=== PATIENT | female | born 1980 | race African-American/Black ===

== ENCOUNTER 2021-12-15 21:54 | Emergency (ER) | payer MEDICAID ==
[~2021-12-15] VITALS: Ht 170.2 cm; Wt 80.0 kg
[2021-12-15 23:46] LABS: BASOPHILS % 0.3 % (0.0-2.0); EOSINOPHILS % 0.5 % (0.0-5.0); HEMATOCRIT. 39.4 % (36.0-48.0); HEMOGLOBIN. 13.6 g/dL (12.0-16.0); LYMPHOCYTES % 11.5 % (20.0-50.0); MEAN CORPUSCULAR HEMOGLOBIN 30.6 pg (28.0-32.0); MEAN CORPUSCULAR VOLUME 88.4 fL (81.0-99.0); MEAN PLATELET VOLUME 6.8 fl (7.4-10.4); MONOCYTES % 5.3 % (2.0-8.0); NEUTROPHILS % 82.4 % (40.0-76.0); PLATELET 338 x1000/uL (130-400); RED BLOOD CELL COUNT 4.45 mill/uL (4.2-5.4); RED CELL DISTRIBUTION WIDTH 12.5 % (11.6-14.6)
[2021-12-15 23:56] LABS: CHLORIDE 111 mEq/L (98-107)
[2021-12-16 00:05] LABS: ETHANOL BLOOD < 10 mg/dL
[2021-12-16 00:22] LABS: CLARITY URINE CLEAR (CLEAR); COLOR URINE YELLOW (YELLOW); KETONES URINE TRACE (NEGATIVE); LEUKOCYTE ESTERASE URINE 2+ (NEGATIVE); NITRITE URINE NEGATIVE (NEGATIVE); OCCULT BLOOD URINE NEGATIVE (NEGATIVE); PROTEIN URINE NEGATIVE (NEGATIVE)
[2021-12-16] MEDS ORDERED: HALOPERIDOL LACTATE 5MG/ML VIAL IM ONE (00:30)
[2021-12-16] MEDS ORDERED: LORAZEPAM 2MG/ML CPJ IM ONE (00:30)
[2021-12-16 01:20] LABS: HCG SCREEN NEGATIVE
[2021-12-16 01:30] LABS: *AMPHETAMINES SCREEN URINE NEGATIVE (NEGATIVE); *BARBITURATES SCREEN URINE NEGATIVE (NEGATIVE); *BENZODIAZEPINES SCREEN URINE NEGATIVE (NEGATIVE); CANNABINOID URINE SCREEN NEGATIVE (NEGATIVE); METHADONE URINE SCREEN NEGATIVE (NEGATIVE); OPIATES URINE SCREEN NEGATIVE (NEGATIVE); PHENCYCLIDINE URINE SCREEN NEGATIVE (NEGATIVE)
[2021-12-16] MEDS: OLANZAPINE 5MG TABLET PO SCH ×2 (11:54→21:40)
[2021-12-16 12:48] LABS: *COCAINE SCREEN URINE NEGATIVE (NEGATIVE)
[2021-12-17] MEDS: OLANZAPINE 5MG TABLET PO SCH ×2 (09:00→20:30)
[2021-12-18] MEDS: OLANZAPINE 5MG TABLET PO SCH ×2 (07:49→20:29)
[2021-12-19 08:30] VITALS: BP 118/56
[2021-12-19] MEDS: OLANZAPINE 5MG TABLET PO SCH (09:14)
== END 2021-12-19 11:23 | disposition home or self-care (01) ==
LOC: ER 21:54
DX: R44.0 Auditory hallucinations (principal); Z86.59 Personal history of other mental and behavioral disorders; Z20.822 Contact with and (suspected) exposure to COVID-19
CPT/HCPCS: 36415; 80053; 80305; 80307; 80320; 80329; 81003; 84703; 85025; 96372; 99285; C9803; J1630; J2060; U0003; U0005; G0480

== ENCOUNTER 2024-10-09 12:13 | Inpatient (IN) | payer MEDICAID ==
[~2024-10-09] VITALS: Ht 165.1 cm; Wt 116.6 kg
[2024-10-09 13:09] LABS: HEMATOCRIT. 42.2 % (36.0-48.0); HEMOGLOBIN. 13.9 g/dL (12.0-16.0); MEAN CORPUSCULAR VOLUME 93.7 fL (81.0-99.0); PLATELET 236 x1000/uL (130-400); RED CELL DISTRIBUTION WIDTH 13.4 % (11.6-14.6); WHITE BLOOD COUNT 6.8 x1000/uL (4.5-11.0)
[2024-10-09 13:11] LABS: CHLORIDE 104 mEq/L (98-107); POTASSIUM 3.9 mEq/L (3.5-5.1); SODIUM 140 mEq/L (136-145)
[2024-10-09 13:12] LABS: CALCIUM 9.4 mg/dL (8.7-10.4); CARBON DIOXIDE 29 mEq/L (21-32)
[2024-10-09 13:17] LABS: CREATININE 1.2 mg/dL (0.6-1.0); GLUCOSE 83 mg/dL (70-105); PROTHROMBIN TIME 10.5 sec (9.6-11.0); UREA NITROGEN BLOOD 10 mg/dL (9-23)
[2024-10-09 13:19] LABS: ACETAMINOPHEN < 2 ug/mL (10-30)
[2024-10-09 13:22] LABS: THYROID STIMULATING HORMONE 6.07 uIU/mL (0.55-4.78)
[2024-10-09 13:26] LABS: ETHANOL BLOOD < 10 mg/dL (<10)
[2024-10-09 13:48] LABS: DIFFERENTIAL COMMENT 1
[2024-10-09 19:40] VITALS: BP 170/69; PULSE 61; RESP 18; TEMP 36.7
[2024-10-09 20:00] VITALS: BP 170/69; PULSE 61; RESP 18; TEMP 36.7; O2SAT 95
[2024-10-09] MEDS ORDERED: DOCUSATE SODIUM 100MG CAPSULE PO PRN (23:45)
[2024-10-09] MEDS ORDERED: ACETAMINOPHEN 325MG TABLET PO PRN (23:45)
[2024-10-09] MEDS ORDERED: NALOXONE HCL 0.4MG/ML VIAL IV PRN (23:45)
[2024-10-09] MEDS ORDERED: HYDROCODONE/ACETAMINOPHEN 5/325MG TABLET PO PRN (23:45)
[2024-10-09] MEDS ORDERED: IPRATROPIUM/ALBUTEROL 0.5-3(2.5)MG/3ML NEB HHN PRN (23:45)
[2024-10-09] MEDS ORDERED: ONDANSETRON HCL 4MG/2ML INJ IV PRN (23:45)
[2024-10-09] MEDS ORDERED: GUAIFENESIN 200MG/10ML SUGAR FREE UDC PO PRN (23:45)
[2024-10-09] MEDS ORDERED: MAGNESIUM/ALUMINUM HYDROXIDE/SIMETHICONE 30ML UDC PO PRN (23:45)
[2024-10-10] VITALS: BP 146/89; PULSE 63; RESP 18; TEMP 36.3; O2SAT 100
[2024-10-10] MEDS: ENOXAPARIN 40MG/0.4ML SYR SUBCUT SCH (00:14)
[2024-10-10 07:55] VITALS: BP 156/85; PULSE 57; RESP 16; TEMP 37.1; O2SAT 97
[2024-10-10 07:57] VITALS: PULSE 61; PULSE 69; RESP 22; RESP 26; TEMP 97.9
[2024-10-10 08:10] LABS: HEMATOCRIT. 35.8 % (36.0-48.0); HEMOGLOBIN. 12.1 g/dL (12.0-16.0); MEAN CORPUSCULAR HEMOGLOBIN 31.7 pg (28.0-32.0); MEAN CORPUSCULAR HGB CONC 33.9 g/dL (31.0-37.0); MEAN CORPUSCULAR VOLUME 93.3 fL (81.0-99.0); MEAN PLATELET VOLUME 6.8 fl (7.4-10.4); PLATELET 211 x1000/uL (130-400); RED BLOOD CELL COUNT 3.83 mill/uL (4.2-5.4); WHITE BLOOD COUNT 5.1 x1000/uL (4.5-11.0)
[2024-10-10 08:24] LABS: CALCIUM 8.9 mg/dL (8.7-10.4); POTASSIUM 3.6 mEq/L (3.5-5.1)
[2024-10-10 08:29] LABS: CREATINE KINASE MB FRACTION < 0.5 ng/mL (0.5-3.6)
[2024-10-10 08:30] LABS: CREATININE 1.2 mg/dL (0.6-1.0)
[2024-10-10 08:31] LABS: CREATINE KINASE 60 IU/L (34-145)
[2024-10-10 08:35] LABS: TROPONIN I HIGH SENSITIVITY < 4 ng/L (3.0-34)
[2024-10-10 08:41] LABS: DIFFERENTIAL COMMENT 1
[2024-10-10 11:54] VITALS: BP 129/88; PULSE 68; RESP 16; TEMP 36.7; O2SAT 99
[2024-10-10 14:29] LABS: T4 FREE 1.64 ng/dL (0.89-1.76)
[2024-10-10 15:39] LABS: CREATINE KINASE MB FRACTION < 0.5 ng/mL (0.5-3.6)
[2024-10-10 15:41] LABS: AMMONIA < 17 uMol/L (<32)
[2024-10-10 15:43] LABS: CREATINE KINASE 75 IU/L (34-145)
[2024-10-10 15:56] LABS: TROPONIN I HIGH SENSITIVITY < 4 ng/L (3.0-34)
[2024-10-10 16:00] VITALS: BP 143/89; PULSE 78; RESP 18; TEMP 36.7; O2SAT 99
[2024-10-10 16:32] LABS: PLATELET ESTIMATE NORMAL
[2024-10-10 17:47] LABS: PLATELET ESTIMATE NORMAL
[2024-10-10 20:00] VITALS: BP 150/90; PULSE 65; RESP 16; TEMP 37.8; O2SAT 96
[2024-10-10 20:10] LABS: FOLIC ACID (FOLATE) SERUM 9.08 ng/mL (>5.38)
[2024-10-10 20:11] LABS: VITAMIN B12 SERUM 369 pg/mL (211-911)
[2024-10-11] VITALS: BP 160/86; PULSE 60; RESP 16; TEMP 37.9; O2SAT 96
[2024-10-11 04:00] VITALS: BP 157/77; PULSE 56; RESP 17; TEMP 37.7; O2SAT 95
[2024-10-11 08:00] VITALS: BP_SYST 127; BP_SYST 160; BP_DIAS 64; BP_DIAS 86; PULSE 60; PULSE 76; RESP 16; RESP 18; TEMP 36.5; TEMP 38.2; O2SAT 95; O2SAT 99
[2024-10-11 12:00] VITALS: BP 142/69; PULSE 90; RESP 18; TEMP 36.4; O2SAT 99
[2024-10-11] MEDS: ACETAMINOPHEN 325MG TABLET PO PRN (12:08)
[2024-10-11] MEDS: CLONIDINE 0.1MG TABLET PO PRN (12:09)
[2024-10-11 16:00] VITALS: BP 114/82; PULSE 86; RESP 18; TEMP 36.4; O2SAT 97
[2024-10-11] MEDS: ENOXAPARIN 30MG/0.3ML SYR SUBCUT SCH (17:13)
[2024-10-11 20:00] VITALS: BP 158/77; PULSE 53; RESP 18; TEMP 36.9; O2SAT 96
[2024-10-11] MEDS ORDERED: LEVETIRACETAM 1,000MG in NACL 100ML PREMIX IV SCH (21:00)
[2024-10-11] MEDS: LEVETIRACETAM 1000MG PREMIX 100 ML IV SCH (21:24)
[2024-10-12] VITALS (7 sets, daily range): BP systolic 113–185; BP diastolic 63–88; PULSE 57–76; RESP 16–19; TEMP 36.3–36.8; O2SAT 95–99
[2024-10-12] MEDS: LEVETIRACETAM 500MG TABLET PO SCH (09:00)
[2024-10-13] VITALS: BP 126/67; PULSE 119; RESP 18; TEMP 36.8; O2SAT 97
[2024-10-13 04:00] VITALS: BP 138/64; PULSE 60; RESP 16; TEMP 36.8; O2SAT 96
[2024-10-13 06:51] LABS: POTASSIUM 3.6 mEq/L (3.5-5.1)
[2024-10-13 06:53] LABS: CALCIUM 8.9 mg/dL (8.7-10.4)
[2024-10-13 06:56] LABS: CREATININE 1.3 mg/dL (0.6-1.0)
[2024-10-13 07:20] LABS: HEMATOCRIT. 33.4 % (36.0-48.0); HEMOGLOBIN. 11.3 g/dL (12.0-16.0); MEAN CORPUSCULAR HEMOGLOBIN 31.5 pg (28.0-32.0); MEAN CORPUSCULAR HGB CONC 33.9 g/dL (31.0-37.0); MEAN PLATELET VOLUME 7.2 fl (7.4-10.4); PLATELET 195 x1000/uL (130-400); RED BLOOD CELL COUNT 3.59 mill/uL (4.2-5.4); RED CELL DISTRIBUTION WIDTH 13.3 % (11.6-14.6); WHITE BLOOD COUNT 5.3 x1000/uL (4.5-11.0)
[2024-10-13 07:48] VITALS: BP 149/78; PULSE 55; RESP 16; O2SAT 98
[2024-10-13 07:55] LABS: DIFFERENTIAL COMMENT 1
[2024-10-13 12:00] VITALS: BP 130/78; PULSE 71; RESP 16; TEMP 36.2; O2SAT 98
[2024-10-13 16:00] VITALS: BP 119/76; PULSE 66; RESP 16; TEMP 36.7; O2SAT 98
[2024-10-13 16:42] LABS: PLATELET ESTIMATE NORMAL
[2024-10-13 20:00] VITALS: BP 126/73; PULSE 68; RESP 18; TEMP 36.5; O2SAT 95
[2024-10-14] VITALS: BP 123/75; PULSE 60; RESP 18; TEMP 36.7; O2SAT 95
[2024-10-14 04:00] VITALS: BP 127/71; PULSE 60; RESP 16; TEMP 36.3; O2SAT 95
[2024-10-14 06:46] LABS: HEMATOCRIT. 34.1 % (36.0-48.0); HEMOGLOBIN. 11.6 g/dL (12.0-16.0); MEAN CORPUSCULAR HEMOGLOBIN 31.5 pg (28.0-32.0); MEAN CORPUSCULAR HGB CONC 33.9 g/dL (31.0-37.0); MEAN CORPUSCULAR VOLUME 92.8 fL (81.0-99.0); MEAN PLATELET VOLUME 7.2 fl (7.4-10.4); PLATELET 215 x1000/uL (130-400); RED BLOOD CELL COUNT 3.68 mill/uL (4.2-5.4); RED CELL DISTRIBUTION WIDTH 13.2 % (11.6-14.6); WHITE BLOOD COUNT 5.5 x1000/uL (4.5-11.0)
[2024-10-14 07:03] LABS: POTASSIUM 3.5 mEq/L (3.5-5.1)
[2024-10-14 07:07] LABS: CREATININE 1.2 mg/dL (0.6-1.0)
[2024-10-14 07:35] LABS: DIFFERENTIAL COMMENT 1
[2024-10-14 17:36] LABS: PLATELET ESTIMATE NORMAL
[2024-10-14 20:00] VITALS: BP 140/80; PULSE 75; RESP 17; TEMP 36.3; O2SAT 100
[2024-10-15] VITALS: BP 139/73; PULSE 55; RESP 18; TEMP 37.3; O2SAT 98
[2024-10-15 04:00] VITALS: BP 122/59; PULSE 53; RESP 16; TEMP 36.7; O2SAT 100
[2024-10-15 08:00] VITALS: BP 134/92; PULSE 57; RESP 16; TEMP 36.3; O2SAT 100
[2024-10-15 12:00] VITALS: BP 127/72; PULSE 56; RESP 16; TEMP 36.3; O2SAT 100
[2024-10-15 16:00] VITALS: BP 159/109; PULSE 70; RESP 18; TEMP 36.4; O2SAT 97
[2024-10-15 20:00] VITALS: BP 148/88; PULSE 70; RESP 18; TEMP 35.7; O2SAT 96
[2024-10-16] VITALS: BP 124/70; PULSE 58; RESP 19; TEMP 36.1; O2SAT 94
[2024-10-16 04:00] VITALS: BP 138/69; PULSE 61; RESP 19; TEMP 36.7; O2SAT 98
[2024-10-16 16:00] VITALS: BP 130/85; PULSE 68; RESP 20; TEMP 36.7; O2SAT 98
[2024-10-16 20:00] VITALS: BP 153/108; PULSE 58; RESP 20; TEMP 36.1; O2SAT 100
[2024-10-17] VITALS: BP 130/67; PULSE 52; RESP 20; TEMP 36.1; O2SAT 95
[2024-10-17 04:00] VITALS: BP 136/78; PULSE 54; RESP 20; TEMP 36.1; O2SAT 94
[2024-10-17 08:00] VITALS: BP 141/82; PULSE 63; RESP 16; TEMP 36.8; O2SAT 97
[2024-10-17 12:00] VITALS: BP 133/85; PULSE 65; RESP 16; TEMP 36.4; O2SAT 94
[2024-10-17 16:00] VITALS: BP 142/77; PULSE 67; RESP 18; TEMP 36.4; O2SAT 97
[2024-10-17 20:00] VITALS: BP 150/85; PULSE 63; RESP 20; TEMP 36.4; O2SAT 98
[2024-10-18] VITALS: BP 124/80; PULSE 68; RESP 20; TEMP 36.6; O2SAT 98
[2024-10-18 04:00] VITALS: BP 140/82; PULSE 67; RESP 20; TEMP 36.4; O2SAT 98
[2024-10-18 08:00] VITALS: BP 149/91; PULSE 61; RESP 16; TEMP 36.6; O2SAT 98
[2024-10-18 12:00] VITALS: BP 125/75; PULSE 79; RESP 17; TEMP 35.9; O2SAT 97
[2024-10-18 16:00] VITALS: BP 128/58; PULSE 76; RESP 17; TEMP 36.3; O2SAT 100
[2024-10-18 20:00] VITALS: BP 169/67; PULSE 67; RESP 18; TEMP 36.4; O2SAT 100
[2024-10-19] VITALS: TEMP 36
[2024-10-19 04:00] VITALS: BP 122/87; PULSE 65; RESP 18; TEMP 36.3; O2SAT 99
[2024-10-19 08:00] VITALS: BP 95/44; PULSE 54; RESP 15; TEMP 37; O2SAT 97
[2024-10-19 12:00] VITALS: BP 115/68; PULSE 65; RESP 15; TEMP 36.4; O2SAT 99
[2024-10-19] MEDS ORDERED: KEPP500 PO (12:12)
[2024-10-19 16:00] VITALS: BP 115/68; PULSE 65; TEMP 97.6; O2SAT 99
== END 2024-10-19 18:35 | disposition home or self-care (01) | DRG 52 ==
LOC: ER 12:13 → EDBEDREQSVC 15:27 → EDBEDREQ 15:27 → EDBEDREQTM 15:27 → 5WST 20:50 → 7EST 10-14 23:50
PROVIDERS: ADMIT Internal Medicine; ATTEND Internal Medicine
PROC: 4A10X4Z Monitoring of Central Nervous Electrical Activity, External Approach (ICD-10-PCS; principal; 2024-10-14)
DX: G92.8 Other toxic encephalopathy (principal); N17.9 Acute kidney failure, unspecified; E78.5 Hyperlipidemia, unspecified; F20.9 Schizophrenia, unspecified; R94.01 Abnormal electroencephalogram [EEG]; F31.9 Bipolar disorder, unspecified; Z79.899 Other long term (current) drug therapy
CPT/HCPCS: 36415; 71045; 80048; 80061; 80307; 80320; 80329; 82140; 82550; 82553; 82607; 82746; 83036; 84145; 84439; 84443; 84481; 84484; 85025; 86850; 86900; 93005; 93306; 93970; 95816; 97162; 97166; 99285; A4606; J1650; J1953; G0480